=== PATIENT | male | born 1985 | race Two or more races ===

== ENCOUNTER 2025-01-30 09:56 | Inpatient (IN) | payer MEDICAID, SELFPAY ==
[2025-01-30] VITALS (8 sets, daily range): BP systolic 114–147; BP diastolic 64–90; PULSE 62–111; RESP 16–100; TEMP 36.2–37.4; O2SAT 98–100; BMI 24.5
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
[2025-01-30 10:47] LABS: Base Excess, Venous -11 (-3-3); O2 Saturation, Venous 63 % (96-97); PCO2, Venous 39 mmHg (36-56); PO2, Venous 41 mmHg (15-58); pH, Venous 7.23 (7.33-7.66)
[2025-01-30 10:53] LABS: Basophils # (Auto) 0.1 Thou/mm3 (0.0-0.2); Basophils % (Auto) 1 % (0-2.5); Eosinophils # (Auto) 0.1 Thou/mm3 (0.0-0.5); Eosinophils % (Auto) 2 % (0-10); Hematocrit 36.5 % (36.0-46.0); Hemoglobin 11.9 g/dL (12.0-16.0); Immature Granulocytes Auto 0.01 Thou/mm3 (0.00-0.00); Lymphocytes # (Auto) 1.9 Thou/mm3 (1.0-4.8); Lymphocytes % (Auto) 40 % (10-50); Mean Corpuscular HGB Conc 32.6 g/dl (31.0-37.0); Mean Corpuscular Hemoglobin 30.7 pg (25.0-35.0); Mean Corpuscular Volume 94 fL (80-100); Monocytes # (Auto) 0.6 Thou/mm3 (0.0-0.8); Monocytes % (Auto) 13 % (0-12); Neutrophils # (Auto) 2.0 Thou/mm3 (1.8-7.7); Neutrophils % (Auto) 42 % (37-80); Nucleated Red Blood Cell # 0.00 Thou/mm3 (0.00-0.00); Nucleated Red Blood Cell % 0 /100 WBC (0); Platelet Count 83 Thou/mm3 (140-440); RDW Standard Deviation 61.6 fL (36.4-46.3); Red Blood Count 3.87 Miln/mm3 (4.00-5.20); White Blood Count 4.7 Thou/mm3 (3.6-11.0)
[2025-01-30 10:56] LABS: Lactate (Lactic Acid) 8.3 mMol/L (0.4-2.0)
[2025-01-30] MEDS: levETIRAcetam INJ 100 MG/ML VIAL 5ML 1000 MG IVP (11:00)
[2025-01-30] MEDS: PHENobarbital INJ 130 MG/1 ML VIAL IV (11:03)
[2025-01-30 11:11] LABS: Alanine Aminotransferase 86 U/L (10-49); Albumin, Serum 4.3 gm/dL (3.5-5.0); Albumin/Globulin Ratio 1.5 (1.2-2.2); Alcohol, Blood Medical < 10.0 mg/dL (0-10.0); Alkaline Phosphatase 63 U/L (46-116); Anion Gap 21 (7-16); Aspartate Amino Transferase 164 U/L (0-34); BUN/Creatinine Ratio 10 Ratio (12-20); Bilirubin,Total 0.5 mg/dL (0.3-1.2); Blood Urea Nitrogen 8 mg/dL (9-23); Calcium 9.2 mg/dL (8.3-10.6); Calcium (Corrected) 9.2 mg/dL (8.5-10.1); Carbon Dioxide 16.4 mMol/L (20.0-31.0); Chloride 102 mMol/L (98-107); Creatine Kinase 158 U/L (34-171); Creatinine (Component) 0.8 mg/dL (0.6-1.3); Estimated Creatinine Clearance 86.6 mL/min (>60); Globulin 2.9 gm/dL (2.3-3.5); Glucose 129 mg/dL (74-106); Magnesium 1.6 mg/dL (1.6-2.6); Osmolality,Calculated 277 (275-295); Phosphorous 3.0 mg/dL (2.4-5.1); Potassium 3.2 mMol/L (3.4-5.1); Sodium 139 mMol/L (136-145); Total Protein 7.2 gm/dL (5.7-8.2); eGFR > 60 See Note
[2025-01-30 11:20] LABS: Collection Type, Urine Clean Catch
[2025-01-30] MEDS: RINGERS LACTATED 1000 ML 1,000 ML 999 ML IV (11:27)
[2025-01-30 11:30] LABS: Bacteria,Urine Rare; Bilirubin,Urine Negative (Negative); Blood,Urine Trace (Negative); Color,Urine Yellow (Lt Yel-Yel); Culture Indicated,Urine Not Indicated; Glucose, Urine Negative (Negative); Hyaline Casts,Urine < 1 /hpf (0-1); Ketones,Urine 1+ (Negative); Leukocyte Esterase,Urine Negative (Negative); Nitrite,Urine Negative (Negative); PH,Urine 6.0 (5.0-7.0); Protein,Urine 1+ (Neg - Trace); RBC,Urine 3 /hpf (0-3); Specific Gravity,Urine 1.026 (1.001-1.035); Squamous Epithelial Cell,Urine 2 /hpf (0-5); Urobilinogen,Urine 3.0 mg/dL (0.0-1.0); WBC,Urine 3 /hpf (0-5)
[2025-01-30 11:34] LABS: Amphetamine/Methamp Scrn,U Negative (Negative); Barbiturate Screen,Urine Negative (Negative); Benzodiazepines Screen,Urine Negative (Negative); Benzoylecgonine Screen, Ur Negative (Negative); Clarity,Urine Hazy (Clear/Hazy); Fentanyl Screen,Urine Negative (Negative); Opiate Screen,Urine Negative (Negative); THC Screen,Urine Negative (Negative)
[2025-01-30] MEDS: FOLIC ACID INJ 1 MG/0.2 ML IVP (11:56)
[2025-01-30] MEDS: THIAMINE INJ 100 MG/ML VIAL 2 ML IVP (11:56)
[2025-01-30] MEDS: Magnesium Sulfate 2 GM Ivpb 2 GM/50 ML BAG IV ×3 (11:57→16:59)
[2025-01-30 13:00] LABS: INR 1.0 (0.9-1.3); Partial Thromboplastin Time 23.2 Seconds (22.0-36.0); Prothrombin Time 11.2 Seconds (9.0-12.2)
--- NOTE | 2025-01-30 13:06 | XR_ITS ---
Examination: AP chest single view Technique one AP portable upright chest single view Date and time: January 30, 2025, 1309 hours INDICATIONS: Chest pain after seizure today. FINDINGS: Normal heart size. No aspiration pneumonia. The osseous structures are intact IMPRESSION: No aspiration pneumonia
[2025-01-30 13:45] LABS: Reflex Lactate? Y
[2025-01-30 14:52] LABS: Troponin I < 0.002 ng/mL (0.0-0.045)
[2025-01-30 15:03] LABS: Lactic Acid, 3 HR 0.8 mMol/L (0.4-2.0)
--- NOTE | 2025-01-30 15:23 | PC.NURSE ---
REPORT GIVEN TO JOSE JAMESON, PATEINT TRANSFERRING TO [id number]
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
[2025-01-30] MEDS: RINGERS LACTATED 1000 ML 1,000 ML 75 ML IV (16:59)
--- NOTE | 2025-01-30 17:53 | ESHP_ITS ---
<Statement entered by Maame Echeverria MD - 02/12/25 09:06> I reviewed above note and agree with findings and plans. I have also personally examined the patient with medicine team and went over assessment and plan with medical team including financial internship and resident physician. <Statement entered by Chandan Adame MD - 01/30/25 20:31> Moshe Pink with history of alcohol dependence and alcohol withdrawal seizures who presented after reported seizure. 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 However, he denies any hallucinations or bloody emesis. Endorses drinking five to eight 25 ounce beers per day and at times with tequila and states that his last drink was on Wednesday. Vital signs stable, CBC shows thrombocytopenia, CHEM panel shows mild hypokalemia, anion gap, low bicarb, lactate 8.3, and transaminitis with pattern consistent with alcohol consumption. CT head negative for acute abnormalities and CXR negative for aspiration pneumonia. Patient was started on scheduled Librium and CIWA protocol for alcohol withdrawal, IV fluids for lactic acidosis. ----- Note reviewed and agree with care plan as documented. Please refer to the note below for further details. Plan discussed with attending physician Dr. Jacki Adame MD PGY-2 Internal Medicine Documentation for date of: 01/30/25 HPI History of Present Illness History of present illness: HPI: 39-year-old male with a past medical history of alcohol use and alcohol withdrawal seizures who presented to the ED on 01/30/2025 after having a seizure. He was standing in line to order food and he does not remember the event. He was brought in by EMS and on presentation was shaking and anxious and seems to be in a postictal state. He reported a history of a seizure 3 years ago. He also reports drinking up to 24 cans of beer per day and his last drink was 01/27/2025. ED course: * The patient was administered a 130 mg injection of phenobarbital, he was given an injection of 1000 mg Keppra, he was given folic acid, a thiamine injection, and magnesium and potassium were given. Seizure precautions were put in place, a 1 L LR bolus was given, and LR maintenance fluids were started at 75 mL/h. * Vitals: On arrival showed a blood pressure 147/90, pulse 86, respiratory rate 17, temperature nine 9.3, and oxygen saturation of 100% on room air. * Labs: Hemoglobin of 11.9, pH 7.23, bicarb 16.4, potassium 3.2, anion gap 21, lactate 8.3, AST 164, ALT 86. * Imaging: Head CT was negative for any acute hemorrhage mass effect or midline shift. Chest x-ray was negative for aspiration pneumonia. * Urine was positive for 1+ proteins, 1+ ketones, rare bacteria, leukocyte tom trace was negative. Urine toxicology and blood alcohol level were negative History: * Past medical history: Alcohol dependence with withdrawal, alcohol withdrawal seizures, alcohol use disorder * Family history: Unknown * Social history: Drinks up to 24 cans of beer daily, has done so for several years: Denies tobacco or illicit drug use * Allergies: No known drug allergies * Medications: No home medications Review of Systems Review of Systems Narrative Review of Systems: Review of Systems: * General: Denies fevers, chills. * HEENT: Denies headache, congestion, or sore throat. * Cardiac: Denies chest pain or palpitations. * Pulmonary: Denies shortness of breath or cough. * GI: Denies nausea, vomiting, diarrhea, constipation, melena, or hematochezia. * : Denies dysuria, hematuria, frequency, or urgency. * MSK: Denies pain in the extremities, joints, or myalgias. * Neuro: Denies weakness, numbness, vision changes, or speech difficulty. Exam Vital Signs Temp Pulse Resp BP Pulse Ox O2 Del Method 97.9 F 67 18 115/67 99 Room Air 01/30/25 16:00 01/30/25 16:00 01/30/25 16:00 01/30/25 16:00 01/30/25 16:01/30/25 16:00 Narrative Exam General: Awake and in no acute distress. Conversational and non-toxic appearing. Neurologic: GCS 15. Alert and oriented x3, no gross neurological deficit, and patient able to move all 4 extremities. HEENT: Normocephalic, atraumatic, mucous membranes moist. Pupils reactive to light. Heart: Regular rate and rhythm, normal S1 and S2, no murmurs. Lungs: Clear to auscultation bilaterally with no wheezing or crackles. Abdomen: Soft, nondistended, nontender, positive bowel sounds. No guarding or rebound tenderness. Extremities: No edema. 2+ radial and dorsalis pedis pulses bilaterally. Skin: Warm. Dry. No rash or ecchymoses. Results: Labs 01/30/25 10:30 01/30/25 10:30 Labs: Short CBC 01/30/25 Range/Units 10:30 WBC 4.7 (3.6-11.0) Thou/mm3 Hgb 11.9 L (12.0-16.0) g/dL Hct 36.5 (36.0-46.0) % Plt Count 83 L (140-440) Thou/mm3 BMP 01/30/25 10:30 Sodium 139 Potassium 3.2 L Chloride 102 Carbon Dioxide 16.4 L BUN 8 L Creatinine 0.8 Glucose 129 H Calcium 9.2 Cardiac Enzymes 01/30/25 Range/Units 10:30 Total Creatine Kinase 158 (34-171) U/L Troponin I < 0.002 (0.0-0.045) ng/mL Liver Function 01/30/25 Range/Units 10:30 Total Bilirubin 0.5 (0.3-1.2) mg/dL AST 164 H (0-34) U/L ALT 86 H (10-49) U/L Alkaline Phosphatase 63 (46-116) U/L Albumin 4.3 (3.5-5.0) gm/dL Urine 01/30/25 Range/Units 11:17 Urine Color Yellow (Lt Yel-Yel) Urine Clarity Hazy (Clear/Hazy) Urine pH 6.0 (5.0-7.0) Ur Specific [place] 1.026 (1.001-1.035) Urine Protein 1+ A (Neg - Trace) Urine Glucose (UA) Negative (Negative) ABG Interpretation ABG results: 01/30/25 10:30 VBG pH 7.23 L VBG pCO2 39 VBG pO2 41 VBG Base Excess -11 L Quality Measures Quality Measures none Medications Home Medications and Allergies Home Medications ?Medication ?Instructions ?Recorded ?Confirmed ?Type No Known Home Medications 10/12/19 0902/15 History Allergies Allergy/AdvReac Type Severity Reaction Status Date / Time No Known Allergies Allergy Verified 01/30/25 11:34 Visit Medications Acetaminophen (Acetaminophen 325 Mg Tablet) 650 mg PO Q6HR PRN PRN Reason: Fever >99.9 Stop: 03/01/25 15:43 Chlordiazepoxide HCl (Chlordiazepoxide Hcl 25 Mg Capsule) 25 mg PO BID [facility] Stop: 01/31/25 20:59 Diazepam (Diazepam Inj 5 Mg/Ml Vial 2 Ml) 5 mg IVP Q2HR PRN PRN Reason: CIWA SCORE >20 Stop: 02/04/25 14:40 Folic Acid (Folic Acid 1 Mg Tablet) 1 mg PO QDAY [facility] Stop: 03/05/25 08:59 Folic Acid (Folic Acid Inj 1 Mg/0.2 Ml) 1 mg IVP QDAY [facility] Stop: 02/02/25 09:01 Lactated Ringer's (Lactated Ringers) 1,000 mls @ 75 mls/hr IV .[id number] [facility] Stop: 03/01/25 14:47 Last Admin: 01/30/25 16:59 Dose: 75 mls/hr Lorazepam (Lorazepam 0.5 Mg Tablet) 2 mg PO Q4HR PRN PRN Reason: CIWA SCORE 16-20 Stop: 02/04/25 15:28 Lorazepam (Lorazepam 0.5 Mg Tablet) 0.5 mg PO Q4HR PRN PRN Reason: CIWA Score 5-10 Stop: 02/04/25 15:28 Lorazepam (Lorazepam 0.5 Mg Tablet) 1 mg PO Q4HR PRN PRN Reason: CIWA SCORE 11-15 Stop: 02/04/25 15:28 Lorazepam (Lorazepam 0.5 Mg Tablet) 2 mg PO BID [facility] Stop: 02/04/25 20:59 Ondansetron HCl (Ondansetron Inj 2 Mg/Ml Inj 2 Ml) 4 mg IVP Q6H PRN; Protocol PRN Reason: NAUSEA OR VOMITING Stop: 03/01/25 14:20 Pantoprazole Sodium (Pantoprazole Inj 40 Mg Vial) 40 mg IVP QDAY [facility] Stop: 03/01/25 15:59 Last Admin: 01/30/25 16:55 Dose: 40 mg Thiamine HCl (Thiamine Inj 100 Mg/Ml Vial 2 Ml) 100 mg IVP QDAY [facility] Stop: 02/01/25 09:01 Last Admin: 01/30/25 16:56 Dose: Not Given Thiamine HCl (Thiamine 100 Mg Tablet) 100 mg PO QDAY [facility] Stop: 03/04/25 08:59 Discontinued Medications Chlordiazepoxide HCl (Chlordiazepoxide Hcl 25 Mg Capsule) 25 mg PO Q8HR PRN PRN Reason: CIWA >9 Stop: 02/03/25 14:43 Chlordiazepoxide HCl (Chlordiazepoxide Hcl 25 Mg Capsule) 25 mg PO Q8HR [facility] Stop: 01/31/25 15:44 Diazepam (Diazepam Inj 5 Mg/Ml Vial 2 Ml) 5 mg IVP X1 ONE Stop: 01/30/25 10:25 Last Admin: 01/30/25 12:04 Dose: Not Given Diazepam (Diazepam Inj 5 Mg/Ml Vial 2 Ml) 2.5 mg IVP Q2HR PRN PRN Reason: CIWA SCORE 8-13 Stop: 02/04/25 14:40 Diazepam (Diazepam Inj 5 Mg/Ml Vial 2 Ml) 5 mg IVP Q2HR PRN PRN Reason: CIWA SCORE 14-19 Stop: 02/04/25 14:40 Diazepam (Diazepam Inj 5 Mg/Ml Vial 2 Ml) 10 mg IVP Q2HR PRN PRN Reason: CIWA SCORE 20-25 Stop: 02/04/25 14:40 Diazepam (Diazepam Inj 5 Mg/Ml Vial 2 Ml) 10 mg IVP X1 PRN PRN Reason: Breakthrough Agitation Diazepam (Diazepam Inj 5 Mg/Ml Vial 2 Ml) 10 mg IVP Q2HR PRN PRN Reason: CIWA SCORE 20-25 Stop: 02/04/25 14:40 Folic Acid (Folic Acid Inj 1 Mg/0.2 Ml) 1 mg IVP X1 ONE Stop: 01/30/25 11:18 Last Admin: 01/30/25 11:56 Dose: 1 mg Lactated Ringer's (Lactated Ringers) 1,000 mls @ 999 mls/hr IV .Q1H1M ONE Stop: 01/30/25 12:17 Last Infusion: 01/30/25 12:46 Dose: Infused Magnesium Sulfate (Magnesium Sulfate Ivpb) 2 gm in 50 mls @ 25 mls/hr IV X1 ONE Stop: 01/30/25 13:16 Last Infusion: 01/30/25 14:00 Dose: Infused Magnesium Sulfate (Magnesium Sulfate Ivpb) 2 gm in 50 mls @ 25 mls/hr IV X1 ONE Stop: 01/30/25 17:42 Last Admin: 01/30/25 16:59 Dose: 25 mls/hr Levetiracetam (Levetiracetam Inj 100 Mg/Ml Vial 5ml) 1,000 mg IVP X1 ONE Stop: 01/30/25 10:25 Last Admin: 01/30/25 11:00 Dose: 1,000 mg Lorazepam (Lorazepam 0.5 Mg Tablet) 0.5 mg PO Q4HR PRN PRN Reason: CIWA Score 5-10 Stop: 02/04/25 15:28 Lorazepam (Lorazepam 0.5 Mg Tablet) 1 mg PO Q4HR PRN PRN Reason: CIWA SCORE 11-15 Stop: 02/04/25 15:28 Phenobarbital Sodium (Phenobarbital Inj 130 Mg/1 Ml Vial) 130 mg IV X1 ONE Stop: 01/30/25 10:31 Last Admin: 01/30/25 11:03 Dose: 130 mg Potassium Chloride (Potassium Chloride 20 Meq Tabcr) 40 meq PO X1 ONE Stop: 01/30/25 11:18 Last Admin: 01/30/25 11:56 Dose: 40 meq Thiamine HCl (Thiamine Inj 100 Mg/Ml Vial 2 Ml) 100 mg IVP X1 ONE Stop: 01/30/25 11:18 Last Admin: 01/30/25 11:56 Dose: 100 mg Assessment & Plan Plan 39-year-old male with a past medical history of alcohol use disorder and withdrawal seizures who presented to the ED after having a seizure. He was giving a loading dose of Keppra and phenobarbital and a 1 L LR bolus in the ED. He was admitted for monitoring of his alcohol withdrawal seizure. #Alcohol dependence #Alcoholic withdrawal seizure * Patient mentions that he drinks up to 24 cans of beer per day * Last drink was 01/27/2025 * Given the patient's heavy alcohol use for several years and the absence of an established seizure disorder, alcohol withdrawal was likely the culprit of the patient's seizure Plan: * Seizure precautions * CIWA alcoholic protocol with lorazepam 0.5, 1, and 2 mg doses established for CIWA scores of 5-10, 11-15, and 16-20 with break through Ativan 2 mg * Thiamine 100 mg p.o. daily * Scheduled chlordiazepoxide 25 mg p.o. twice daily * Scheduled lorazepam 2 mg p.o. twice daily #Anion gap metabolic acidosis #Lactic acidosis (Resolved) * Anion gap 21 * Lactic acid 8.3, downtrended to 0.8 * Consider in the setting of seizure and associated hypoxia leading to increased anaerobic metabolism leading to lactate spike Plan: * Will monitor anion gap * Consider exploring other underlying causes like diabetes if gap fails to close #Transaminitis * AST 164, ALT 86 * Roughly 2:1 ratio may reinforce chronic alcohol dependence Plan: * Trend with labs #Hypokalemia * Potassium 3.2 on arrival * Was given 40 mill EQ potassium in the ER Plan: * Will follow-up with morning labs #Normocytic anemia * Hemoglobin 11.9, MCV 94 * Likely dilutional in nature due to fluid bolus Plan: * Will follow morning labs #Thrombocytopenia * Platelets 83 * No evidence of active bleeding Plan: * Trend with labs Hospital Maintenance: DVT ppx: SCDs GI ppx: Pantoprazole 40 mg IV daily Diet: Regular diet IV lines: Peripheral IV Code status: Full code Dispo: Patient admitted with seizure precautions and with CIWA protocol in place. Patient was seen and discussed with my attending physician Dr. Jacki MEZA and my senior resident Dr. Wendi MEZA PGY-2. Rosales Arreguin DO PGY-1.
[2025-01-31] VITALS (8 sets, daily range): BP systolic 96–115; BP diastolic 57–74; PULSE 47–90; RESP 13–98; TEMP 36.1–36.6; O2SAT 94–97
--- NOTE | 2025-01-31 04:30 | PC.NURSE ---
Spoke with MD Ying at approximately 0347 regarding patient's asymptomatic bradycardia at 48 - 53 bpm, MD okayed with no new orders. Care Continued.
[2025-01-31 05:57] LABS: Basophils # (Auto) 0.0 Thou/mm3 (0.0-0.2); Basophils % (Auto) 1 % (0-2.5); Eosinophils # (Auto) 0.1 Thou/mm3 (0.0-0.5); Eosinophils % (Auto) 3 % (0-10); Hematocrit 35.0 % (41.0-53.0); Hemoglobin 11.3 g/dL (13.5-16.0); Immature Granulocytes Auto 0.00 Thou/mm3 (0.00-0.00); Lymphocytes # (Auto) 1.4 Thou/mm3 (1.0-4.8); Lymphocytes % (Auto) 36 % (10-50); Mean Corpuscular HGB Conc 32.3 g/dl (31.0-37.0); Mean Corpuscular Hemoglobin 30.3 pg (25.0-35.0); Mean Corpuscular Volume 94 fL (80-100); Monocytes # (Auto) 0.5 Thou/mm3 (0.0-0.8); Monocytes % (Auto) 13 % (0-12); Neutrophils # (Auto) 1.8 Thou/mm3 (1.8-7.7); Neutrophils % (Auto) 47 % (37-80); Nucleated Red Blood Cell # 0.00 Thou/mm3 (0.00-0.00); Nucleated Red Blood Cell % 0 /100 WBC (0); Platelet Count 117 Thou/mm3 (140-440); RDW Standard Deviation 63.5 fL (35.1-43.9); Red Blood Count 3.73 Miln/mm3 (4.50-5.90); White Blood Count 3.7 Thou/mm3 (3.8-10.6)
[2025-01-31 06:10] LABS: INR 1.0 (0.9-1.3); Partial Thromboplastin Time 24.3 Seconds (22.0-36.0); Prothrombin Time 11.1 Seconds (9.0-12.2)
[2025-01-31 06:36] LABS: Alanine Aminotransferase 95 U/L (10-49); Albumin, Serum 4.0 gm/dL (3.5-5.0); Albumin/Globulin Ratio 1.8 (1.2-2.2); Alkaline Phosphatase 49 U/L (46-116); Anion Gap 8 (7-16); Aspartate Amino Transferase 132 U/L (0-34); BUN/Creatinine Ratio 8 Ratio (12-20); Bilirubin,Total 0.5 mg/dL (0.3-1.2); Blood Urea Nitrogen < 5 mg/dL (9-23); Calcium 8.7 mg/dL (8.3-10.6); Calcium (Corrected) 8.7 mg/dL (8.5-10.1); Carbon Dioxide 24.0 mMol/L (20.0-31.0); Cardiac Risk Estimate 3.1 RATIO (4.0-6.7); Chloride 109 mMol/L (98-107); Cholesterol 172 mg/dL (132-200); Creatinine (Component) 0.6 mg/dL (0.6-1.3); Estimated Creatinine Clearance 146.2 mL/min (>60); Globulin 2.2 gm/dL (2.3-3.5); Glucose 96 mg/dL (74-106); HDL Cholesterol 55 mg/dL (40-60); LDL Cholesterol,Calculated 105 mg/dL (0-130); Magnesium 2.1 mg/dL (1.6-2.6); Osmolality,Calculated 278 (275-295); Phosphorous 3.3 mg/dL (2.4-5.1); Potassium 4.0 mMol/L (3.4-5.1); Sodium 141 mMol/L (136-145); Total Protein 6.2 gm/dL (5.7-8.2); Triglycerides 61 mg/dL (30-150); eGFR > 60 See Note
[2025-01-31] MEDS: RINGERS LACTATED 1000 ML 1,000 ML 75 ML IV ×2 (07:58→21:14)
[2025-01-31] MEDS: FOLIC ACID INJ 1 MG/0.2 ML IVP (09:59)
[2025-01-31] MEDS: THIAMINE INJ 100 MG/ML VIAL 2 ML IVP (09:59)
--- NOTE | 2025-01-31 11:47 | ESPR_ITS ---
<Statement entered by Maame Echeverria MD - 02/12/25 09:06> I reviewed above note and agree with findings and plans. I have also personally examined the patient with medicine team and went over assessment and plan with medical team including international trade manager and resident physician. <Statement entered by Chandan Adame MD - 01/31/25 13:53> No acute overnight events. Seen and examined at bedside and patient appears calm but asterixis present on exam. CIWA scores remain low so we will DC Librium. Will continue to monitor and anticipate discharge withiin next 24-48 hours. ----- Note reviewed and agree with care plan as documented. Please refer to the note below for further details. Plan discussed with attending physician Dr. Jacki Adame MD PGY-2 Internal Medicine Documentation for date of: 01/31/25 Subjective Subjective Interval history: No overnight events. Patient resting comfortably in bed. CIWA score has been 0-1. The patient did have a slight unilateral postural hand tremor on the left upon exam this morning. He also endorsed a mild headache. He has otherwise had no diaphoresis, anxiety, nausea or vomiting. Will reduce his scheduled twice daily lorazepam from 2 mg to 1 mg and stop Librium. Exam Vital Signs Temp Pulse Resp BP Pulse Ox O2 Del Method 97.2 F 58 L 13 106/69 95 Room Air 01/31/25 08:00 01/31/25 08:00 01/31/25 08:00 01/31/25 08:00 01/31/25 08:00 01/31/25 08:00 Narrative Exam General: Awake and in no acute distress. Conversational and non-toxic appearing. Neurologic: GCS 15. Alert and oriented x3, no gross neurological deficit, and patient able to move all 4 extremities. HEENT: Normocephalic, atraumatic, mucous membranes moist. Pupils reactive to light. Heart: Regular rate and rhythm, normal S1 and S2, no murmurs. Lungs: Clear to auscultation bilaterally with no wheezing or crackles. Abdomen: Soft, nondistended, nontender, positive bowel sounds. No guarding or rebound tenderness. Extremities: Mild left sided postural hand tremor. No edema. 2+ radial and dorsalis pedis pulses bilaterally. Skin: Warm. Dry. No rash or ecchymoses. Objective Labs 01/31/25 05:13 01/31/25 05:13 Labs: Laboratory Results - last 24 hr 01/30/25 01/30/25 01/30/25 10:30 12:09 14:59 WBC RBC Hgb Hct MCV MCH MCHC RDW Std Deviation Plt Count Neut % (Auto) Lymph % (Auto) [place] % (Auto) Eos % (Auto) Baso % (Auto) Neut # (Auto) Lymph # (Auto) [place] # (Auto) Eos # (Auto) Baso # (Auto) Immature Gran # (Auto) Absolute Nucleated RBC Immature Gran % Nucleated RBC % PT 11.2 INR 1.0 APTT 23.2 Sodium Potassium Chloride Carbon Dioxide Anion Gap BUN Creatinine Estim Creat Clear Calc eGFR BUN/Creatinine Ratio Glucose Calculated Osmolality Lactic Acid 0.8 Calcium Corrected Calcium Phosphorus Magnesium Total Bilirubin AST ALT Alkaline Phosphatase Troponin I < 0.002 Total Protein Albumin Globulin Albumin/Globulin Ratio Triglycerides Cholesterol LDL Cholesterol, Calc HDL Cholesterol Cholesterol/HDL Ratio 01/31/25 05:13 WBC 3.7 L RBC 3.73 L Hgb 11.3 L Hct 35.0 L MCV 94 MCH 30.3 MCHC 32.3 RDW Std Deviation 63.5 H Plt Count 117 L D Neut % (Auto) 47 Lymph % (Auto) 36 [place] % (Auto) 13 H Eos % (Auto) 3 Baso % (Auto) 1 Neut # (Auto) 1.8 Lymph # (Auto) 1.4 [place] # (Auto) 0.5 Eos # (Auto) 0.1 Baso # (Auto) 0.0 Immature Gran # (Auto) 0.00 Absolute Nucleated RBC 0.00 Immature Gran % 0 Nucleated RBC % 0 PT 11.1 INR 1.0 APTT 24.3 Sodium 141 Potassium 4.0 D Chloride 109 H Carbon Dioxide 24.0 Anion Gap 8 BUN < 5 L Creatinine 0.6 Estim Creat Clear Calc 146.2 eGFR > 60 BUN/Creatinine Ratio 8 L Glucose 96 Calculated Osmolality 278 Lactic Acid Calcium 8.7 Corrected Calcium 8.7 Phosphorus 3.3 Magnesium 2.1 Total Bilirubin 0.5 AST 132 H ALT 95 H Alkaline Phosphatase 49 D Troponin I Total Protein 6.2 Albumin 4.0 Globulin 2.2 L Albumin/Globulin Ratio 1.8 Triglycerides 61 Cholesterol 172 LDL Cholesterol, Calc 105 HDL Cholesterol 55 Cholesterol/HDL Ratio 3.1 L ABG Interpretation ABG results: 01/30/25 10:30 VBG pH 7.23 L VBG pCO2 39 VBG pO2 41 VBG Base Excess -11 L Quality Measures Quality Measures none Assessment & Plan Assessment Current Active Medications: Generic Name Dose Route Start Last Admin Trade Name Freq PRN Reason Stop Dose Admin Acetaminophen 650 mg 01/30/25 15:44 Acetaminophen 325 Mg Tablet PO 03/01/25 15:43 Q6HR PRN Fever >99.9 Chlordiazepoxide HCl 25 mg 01/30/25 21:00 01/31/25 09:58 Chlordiazepoxide Hcl 25 Mg Capsule PO 01/31/25 20:59 25 mg BID NILA Administration Diazepam 5 mg 01/30/25 15:33 Diazepam Inj 5 Mg/Ml Vial 2 Ml IVP 02/04/25 14:40 Q2HR PRN CIWA SCORE >20 Folic Acid 1 mg 02/03/25 09:00 Folic Acid 1 Mg Tablet PO 03/05/25 08:59 QDAY NILA Folic Acid 1 mg 01/31/25 09:00 01/31/25 09:59 Folic Acid Inj 1 Mg/0.2 Ml IVP 02/02/25 09:01 1 mg QDAY NILA Administration Lactated Ringer's 1,000 mls @ 75 mls/hr 01/30/25 14:48 01/31/25 07:58 Lactated Ringers IV 03/01/25 14:47 75 mls/hr .[id number] NILA Administration Lorazepam 2 mg 01/30/25 15:29 Lorazepam 0.5 Mg Tablet PO 02/04/25 15:28 Q4HR PRN CIWA SCORE 16-20 Lorazepam 0.5 mg 01/30/25 15:36 Lorazepam 0.5 Mg Tablet PO 02/04/25 15:28 Q4HR PRN CIWA Score 5-10 Lorazepam 1 mg 01/30/25 15:36 Lorazepam 0.5 Mg Tablet PO 02/04/25 15:28 Q4HR PRN CIWA SCORE 11-15 Lorazepam 1 mg 01/31/25 08:45 01/31/25 09:58 Lorazepam 0.5 Mg Tablet PO 02/05/25 08:44 1 mg BID NILA Administration Ondansetron HCl 4 mg 01/30/25 14:21 Ondansetron Inj 2 Mg/Ml Inj 2 Ml IVP 03/01/25 14:20 Q6H PRN NAUSEA OR VOMITING Protocol Pantoprazole Sodium 40 mg 01/30/25 16:00 01/31/25 09:59 Pantoprazole Inj 40 Mg Vial IVP 03/01/25 15:59 40 mg QDAY NILA Administration Thiamine HCl 100 mg 01/30/25 15:45 01/31/25 09:59 Thiamine Inj 100 Mg/Ml Vial 2 Ml IVP 02/01/25 09:01 100 mg QDAY NILA Administration Thiamine HCl 100 mg 02/02/25 09:00 Thiamine 100 Mg Tablet PO 03/04/25 08:59 QDAY NILA Plan Summary: 39-year-old male with a past medical history of alcohol use disorder and withdrawal seizures who presented to the ED after having a seizure. He was giving a loading dose of Keppra and phenobarbital and a 1 L LR bolus in the ED. He was admitted for monitoring of his alcohol withdrawal seizure. # Seizure likely due to alcohol withdrawal #Alcohol use disorder * Patient mentions that he drinks up to 24 cans of beer per day * Last drink was 01/27/2025 * Given the patient's heavy alcohol use for several years and the absence of an established seizure disorder, alcohol withdrawal was likely the culprit of the patient's seizure * Patient's CIWA score has been 0-1 Plan: * Continue seizure precautions * CIWA alcoholic protocol with lorazepam 0.5, 1, and 2 mg doses established for CIWA scores of 5-10, 11-15, and 16-20 with break through Ativan 2 mg * Continue thiamine 100 mg p.o. daily * Discontinue scheduled chlordiazepoxide 25 mg p.o. twice daily * Scheduled lorazepam changed from 2 mg to 1 mg p.o. twice daily #Transaminitis * AST 164, ALT 86. Downtrended to AST 132, ALT 95 * Roughly 2:1 ratio may reinforce chronic alcohol dependence Plan: * Continue to trend with labs #Normocytic anemia * Hemoglobin 11.3 and stable, MCV 94 * Likely dilutional in nature due to fluid bolus Plan: * Will follow morning labs # Acute thrombocytopenia * Platelets 83, up trended to 117 * No evidence of active bleeding Plan: * Trend with labs #Anion gap metabolic acidosis (Resolved) #Lactic acidosis (Resolved) * Anion gap 8 * Lactic acid 8.3, downtrended to 0.8 * Consider in the setting of seizure and associated hypoxia leading to increased anaerobic metabolism leading to lactate spike #Hypokalemia (Resolved) * Potassium 3.2 on arrival * Was given 40 mill EQ potassium in the ER, corrected to 4.0 Hospital Maintenance: DVT ppx: SCDs GI ppx: Pantoprazole 40 mg IV daily Diet: Regular diet IV lines: Peripheral IV Code status: Full code Dispo: CIWA protocol remains in place. Scores 0-1. Discontinued chlordiazepoxide and reduced scheduled Librium dose. Anticipate discharge tomorrow. Patient was seen and discussed with my attending physician Dr. Jacki MEZA and my senior resident Dr. Wendi MEZA PGY-2. Rosales Arreguin DO PGY-1.
--- NOTE | 2025-01-31 15:31 | PC.SS ---
SS met with patient who is alert/oriented. Patient was able to verify demographics. Patient is Armenian speaking only. 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 Patient states he resides with his sister, Kim. Patient is independent with ADL's. Patient resides at: [address] [place], [place] Patient was admitted for ETOH withdrawl. Patient states he's been drinking excessively since October. Patient states overall he's been drinking since he was 18. He has no prior history of in patient or out patient alcohol rehab. Patient states he was court ordered 3 years ago to go to meetings. Patient states he drinks beer and hard liquor. Patient states he would like to stop drinking and is agreeable to resources. SS will provide a list of community resources for alcohol rehab and support services. Patient states he will return home with his sister. He will need transportation home. PCP: [facility]. Past last appt. was a few months ago. Pharmacy: [facility] medical decision maker: Sister, Kim Guzman, d/c plan: home
[2025-02-01] VITALS (7 sets, daily range): BP systolic 104–124; BP diastolic 61–81; PULSE 51–79; RESP 16–98; TEMP 36.1–36.5; O2SAT 97–100
[2025-02-01 05:33] LABS: Basophils # (Auto) 0.1 Thou/mm3 (0.0-0.2); Basophils % (Auto) 1 % (0-2.5); Eosinophils # (Auto) 0.2 Thou/mm3 (0.0-0.5); Eosinophils % (Auto) 3 % (0-10); Hematocrit 36.4 % (41.0-53.0); Hemoglobin 11.6 g/dL (13.5-16.0); Immature Granulocytes Auto 0.01 Thou/mm3 (0.00-0.00); Lymphocytes # (Auto) 1.5 Thou/mm3 (1.0-4.8); Lymphocytes % (Auto) 30 % (10-50); Mean Corpuscular HGB Conc 31.9 g/dl (31.0-37.0); Mean Corpuscular Hemoglobin 29.9 pg (25.0-35.0); Mean Corpuscular Volume 94 fL (80-100); Monocytes # (Auto) 0.6 Thou/mm3 (0.0-0.8); Monocytes % (Auto) 12 % (0-12); Neutrophils # (Auto) 2.7 Thou/mm3 (1.8-7.7); Neutrophils % (Auto) 53 % (37-80); Nucleated Red Blood Cell # 0.00 Thou/mm3 (0.00-0.00); Nucleated Red Blood Cell % 0 /100 WBC (0); Platelet Count 108 Thou/mm3 (140-440); RDW Standard Deviation 62.0 fL (35.1-43.9); Red Blood Count 3.88 Miln/mm3 (4.50-5.90); White Blood Count 5.1 Thou/mm3 (3.8-10.6)
[2025-02-01 06:05] LABS: Alanine Aminotransferase 108 U/L (10-49); Albumin, Serum 4.0 gm/dL (3.5-5.0); Albumin/Globulin Ratio 1.7 (1.2-2.2); Alkaline Phosphatase 52 U/L (46-116); Anion Gap 9 (7-16); Aspartate Amino Transferase 107 U/L (0-34); BUN/Creatinine Ratio 8 Ratio (12-20); Bilirubin,Total 0.4 mg/dL (0.3-1.2); Blood Urea Nitrogen < 5 mg/dL (9-23); Calcium 8.9 mg/dL (8.3-10.6); Calcium (Corrected) 8.9 mg/dL (8.5-10.1); Carbon Dioxide 25.8 mMol/L (20.0-31.0); Chloride 105 mMol/L (98-107); Creatinine (Component) 0.6 mg/dL (0.6-1.3); Estimated Creatinine Clearance 146.2 mL/min (>60); Globulin 2.3 gm/dL (2.3-3.5); Glucose 107 mg/dL (74-106); Osmolality,Calculated 276 (275-295); Potassium 3.7 mMol/L (3.4-5.1); Sodium 140 mMol/L (136-145); Total Protein 6.3 gm/dL (5.7-8.2); eGFR > 60 See Note
[2025-02-01] MEDS: THIAMINE INJ 100 MG/ML VIAL 2 ML IVP (09:04)
[2025-02-01] MEDS: PANTOPRAZOLE 40 MG TABLET PO (09:04)
[2025-02-01] MEDS: FOLIC ACID INJ 1 MG/0.2 ML IVP (10:27)
[2025-02-01] MEDS: RINGERS LACTATED 1000 ML 1,000 ML 75 ML IV (10:28)
--- NOTE | 2025-02-01 11:45 | ESDS_ITS ---
<Statement entered by Maame Echeverria MD - 02/12/25 09:07> I reviewed above note and agree with findings and plans. I have also personally examined the patient with medicine team and went over assessment and plan with medical team including research program intern and resident physician. <Statement entered by Chandan Adame MD - 02/01/25 16:20> Note reviewed and agree with care plan as documented. Please refer to the note below for further details. Plan discussed with attending physician Dr. Jacki Adame MD PGY-2 Internal Medicine Planned Discharge Date 02/01/25 DS: Providers Provider Date of admission: 01/30/25 13:37 Primary care physician: Olga Haddad NP Admitting Provider: Maame Echeverria MD Attending Provider on Admission: Maame Echeverria MD Attending Provider on DC: Maame Echeverria MD Discharging Provider: Rosales Arreguin DO DS: Diagnosis Discharge Diagnosis (1) Alcohol withdrawal: Status: Acute Qualifiers: Complication of substance-induced condition: uncomplicated Qualified Code(s): F10.930 - Alcohol use, unspecified with withdrawal, uncomplicated (2) Alcohol use disorder: Status: Acute Problem List Completed Was Problem List Reviewed/Reconciled?: Yes Hospital Course Hospital Course Hospital course: Hospital Course: 39-year-old male with a past medical history of alcohol use disorder and withdrawal seizures who presented to the ED after having a seizure. He was giving a loading dose of Keppra and phenobarbital and a 1 L LR bolus in the ED. He was admitted for monitoring of his alcohol withdrawal seizure. CIWA protocol was put in place but the patient had low scores, never greater than 3. He did not have another seizure. He was on daily Librium which was discontinued. He was on scheduled lorazepam twice daily that was weaned in dosage. The patient's CIWA score never prompted any administration of benzodiazepines. Vitals are stable on discharge. He will be discharged on naltrexone. Problem List: #Seizure likely due to alcohol withdrawal #Alcohol use disorder #Transaminitis #Normocytic anemia # Acute thrombocytopenia #Anion gap metabolic acidosis (Resolved) #Lactic acidosis (Resolved) #Hypokalemia (Resolved) Discharge Instructions: ? Continue taking all other home medications as prescribed ? Follow-up with PCP within 1-2 weeks of discharge ? You've been started on naltrexone to help decrease alcohol use ? If you do not have a PCP, you can follow-up at the [facility] (you can call [phone] to make an appointment) ? Return to ED if symptoms worsen or recur The patient was seen and discussed with my attending physician Dr. Jacki MEZA and my senior resident Dr. Wendi MEZA PGY-2. Rosales Arreguin PGY-1 Time Spent with Patient Time attestation: Total time spent providing and/or coordinating discharge services: More than 50% Time spent: Greater than 30 minutes Exam Vital Signs Temp Pulse Resp BP Pulse Ox O2 Del Method 97.5 F 60 16 124/81 100 Room Air 02/01/25 08:00 02/01/25 08:00 02/01/25 08:00 02/01/25 08:00 02/01/25 08:00 02/01/25 08:00 Narrative Exam General: Awake and in no acute distress. Conversational and non-toxic appearing. Neurologic: GCS 15. Alert and oriented x3, no gross neurological deficit, and patient able to move all 4 extremities. HEENT: Normocephalic, atraumatic, mucous membranes moist. Pupils reactive to light. Heart: Regular rate and rhythm, normal S1 and S2, no murmurs. Lungs: Clear to auscultation bilaterally with no wheezing or crackles. Abdomen: Soft, nondistended, nontender, positive bowel sounds. No guarding or rebound tenderness. Extremities: Mild left sided postural hand tremor. No edema. 2+ radial and dorsalis pedis pulses bilaterally. Skin: Warm. Dry. No rash or ecchymoses. Discharge Plan Plan Patient Disposition: HOME (Self Care) Patient condition on transfer: Stable Care Plan Goals: ? Continue taking all other home medications as prescribed ? Follow-up with PCP within 1-2 weeks of discharge ? You've been started on naltrexone to help decrease alcohol use ? If you do not have a PCP, you can follow-up at the [facility] (you can call [phone] to make an appointment) ? Return to ED if symptoms worsen or recur Prescriptions/Referrals Prescriptions/Med Rec: New naltrexone 50 mg tablet 50 mg PO QDAY 30 Days Qty: 30 0RF Referrals: Olga Haddad NP [Primary Care Provider] Patient/Caregiver Discharge Instructions Print Language: Estonian Stand Alone Forms: [facility] Award Info., Patient Portal Info Letter Discharge Order Discharge Orders: Discharge (Routine); Ordered 02/01/25 Ordered By: Chandan Adame Quality Discharge Quality Measures none
--- NOTE | 2025-02-01 15:24 | PC.SS ---
follow up note: SS met with patient to provide all contact numbers for alcohol rehab resources. Patient to d/c home today with family.
== END 2025-02-01 12:55 | disposition home or self-care (01) | DRG 775 ==
LOC: SERX 13:11 → SERHOLD 14:06 → S2NX 15:40
PROVIDERS: Admitting Provider Internal Medicine; Emergency Provider Emergency Medicine; PCP Nurse Practitioner Women's Health; Visit Provider Internal Medicine
DX: F10.230 Alcohol dependence with withdrawal, uncomplicated (principal); R56.9 Unspecified convulsions; E87.6 Hypokalemia; R74.01 Elevation of levels of liver transaminase levels; E87.20 Acidosis, unspecified; D64.9 Anemia, unspecified; D69.6 Thrombocytopenia, unspecified; Z87.891 Personal history of nicotine dependence; F19.90 Other psychoactive substance use, unspecified, uncomplicated
CPT/HCPCS: 36415; 70450; 71045; 80053; 80061; 80307; 80320; 81001; 82550; 82803; 83605; 83735; 84100; 84484; 85025; 85610; 85730; 96365; 96366; 96375; 99284; A4649; J1953; J2470; J2560; J3411; J3475; J3490; J7120; A9270; G0480